=== PATIENT | male | born 1995 | race Caucasian/White ===

== ENCOUNTER → 2016-08-16 | Outpatient (CLI) | payer OTHER ==
[~2016-08-16] MED LIST: ABL/5 PO; CEPH500C PO; CETI10TA84 PO; ERYOPO OPB; MIRT1TAB27 PO; MIRT30TA PO; MIRT45TA3 PO; PANT40TA PO; PROP10TA54 PO; QUET1TAB30 PO; QUET1TAB34 PO; SULF800T23 PO
--- NOTE | 2016-08-16 10:19 | DIAGNOSTIC IMAGING REPORT ---
MRI OF THE BRAIN WITHOUT CONTRAST CLINICAL HISTORY: Visual hallucinations. COMPARISON STUDY: None. TECHNIQUE: Utilizing a 1.5 Vania magnet and dedicated coil, multiplanar, multiecho imaging of the brain was performed without IV contrast. FINDINGS: There are no areas of restricted diffusion. No acute intracranial hemorrhage, midline shift or mass effect is present. Brain volume is normal. Ventricular system is normal. The basilar cisterns are patent. There are no extra-axial collections. Flow-voids for the major intracranial vessels are present. Calvarial signal is maintained. No intracranial masses are identified on this unenhanced exam. No areas of parenchymal signal abnormality are present. An 8 mm T1 hyperintense focus along the superior wall of the sphenoid sinus is of doubtful significance. There is mild mucosal thickening of the sinuses. IMPRESSION: 1. Unremarkable unenhanced MRI of the brain. 2. Mild mucosal thickening of the sinuses. Electronically signed by: Mark Macario M.D. 08/16/2016 10:15 AM Dictated Date/Time: 08/16/2016 10:08 AM
== END | disposition home or self-care (01) ==
LOC: C.MRI 09:28
PROVIDERS: ATTEND Psychiatry & Neurology Neurology
DX: R44.1 Visual hallucinations (principal)

== ENCOUNTER → 2016-08-18 | Outpatient (CLI) | payer OTHER ==
--- NOTE | 2016-08-18 14:46 | MOTOR CONDUCTION ---
CLINICAL DIAGNOSIS: Periodic visual hallucinations now improving on medications. EEG DIAGNOSIS: Essentially normal during wakefulness. DESCRIPTION OF TRACING: This EEG was done in the laboratory and was of good technical quality. A simultaneous video analysis of patient movement and behavior was obtained. Photic stimulation was performed. Hyperventilation was not. Drowsiness and light sleep are not clearly recorded. Under these conditions, there is evidence for normal background rhythm in the alpha range of up to 10 Hz of maximum frequency and 30 microvolts of maximum amplitude. This is maximum posterior head regions and bilaterally symmetrical. Polymorphic mid frequency theta activity is seen over all head regions without clear focal regional predominance. Anterior head region maximum bilaterally symmetrical low voltage fast activity in the beta range is present. Photic stimulation provoked some modest driving response without any photoparoxysmal or photomyogenic component. At no time during the waking tracing is there evidence for potentially epileptogenic activity in the form of polyspike or spike wave bursts, focal sharp waves or focal spikes. INTERPRETATION: This EEG is essentially normal during wakefulness without evidence for focal or generalized encephalopathy and without evidence for potentially epileptogenic activity. MTDD
== END | disposition home or self-care (01) ==
LOC: C.NEUR 09:30
PROVIDERS: ATTEND Psychiatry & Neurology Neurology
DX: R44.1 Visual hallucinations (principal)

== ENCOUNTER 2016-10-22 19:51 | Emergency (ER) | payer OTHER ==
[~2016-10-22] VITALS: Ht 180.3 cm; Wt 74.6 kg
[~2016-10-22 19:51] MED LIST changes: -ABL/5 PO; -CEPH500C PO; -ERYOPO OPB; -MIRT30TA PO; -MIRT45TA3 PO; -QUET1TAB30 PO; -QUET1TAB34 PO; -SULF800T23 PO
[2016-10-22 20:00] VITALS: TEMP 36.8; Ht 180.3 cm; Wt 74.6 kg
[2016-10-22] MEDS ORDERED: ONDANSETRON INJ 2 MG/ML 2 ML VIAL IV STA (21:28)
[2016-10-22] MEDS ORDERED: SODIUM CHLORIDE 0.9% 1000ML 1,000 ML IV ONE (21:30)
[2016-10-22 21:43] LABS: BASO % 0.3 %; BASO ABS # 0.03 K/uL (0-0.2); COMPLETE YES; EOS % 3.2 %; HEMATOCRIT 43.4 % (42-52); IG% 0.2 %; LYMPH % 10.1 %; LYMPH ABS # 0.89 K/uL (1.2-3.4); MEAN CELL VOLUME 87.7 fL (80-100); MEAN CORPUSCULAR HEMOGLOBIN 30.7 pg (25-34); MONO % 12.8 %; NEUT % 73.4 %; PLATELET COUNT 223 K/uL (130-400); RED BLOOD COUNT 4.95 M/uL (4.7-6.1); WHITE BLOOD COUNT 8.78 K/uL (4.8-10.8)
--- NOTE | 2016-10-22 21:59 | DIAGNOSTIC IMAGING REPORT ---
KUB CLINICAL HISTORY: abd cramping COMPARISON STUDY: No previous studies for comparison. FINDINGS: There is no pathologic bowel dilatation. There is a 3 mm calcification projected over the left kidney consistent with a calculus. IMPRESSION: 1. No pathologic bowel dilatation 2. Left-sided nephrolithiasis Electronically signed by: Unruly Dickinson M.D. 10/22/2016 9:58 PM Dictated Date/Time: 10/22/2016 9:57 PM
[2016-10-22 22:01] LABS: BUN/CREATININE RATIO 18.2 (10-20); CALCIUM 9.3 mg/dl (8.5-10.1); POTASSIUM 3.8 mmol/L (3.5-5.1)
[2016-10-22 22:04] LABS: ALB/GLOB RATIO 1.4 (0.9-2)
[2016-10-22] MEDS ORDERED: QUET1TAB30 PO (22:29)
[2016-10-22] MEDS ORDERED: MIRT30TA PO (22:29)
[2016-10-22] MEDS ORDERED: QUET1TAB34 PO (22:29)
[2016-10-22 22:32] VITALS: BP 128/78; PULSE 89; O2SAT 98
--- NOTE | 2016-10-23 15:48 | EMERGENCY ROOM VISIT NOTE ---
History First contact with patient: 21:16 Chief Complaint: ABDOMINAL PAIN Stated Complaint: ABDOMINAL PAIN Nursing Triage Summary: pt c/o really bad abd pain that started an hour ago History of Present Illness The patient is a 21 year old male who presents to the Emergency Room with complaints of abdominal pain that began about 1 hour prior to arrival. The patient states that he was eating his dinner when he had a slowly worsening abdominal discomfort. He felt bloated and gassy. The patient states the symptoms persisted, prompting his presentation to the department. The patient has not had fever or chills. He was slightly nauseated without vomiting. Prior to my arrival in the room the patient had a large bowel movement here in the ER. He reports this significantly improved his symptoms. His discomfort was initially a 7/10, however now it is a 1/10. The patient considers himself usually healthy. Review of Systems More than 10 systems were reviewed and otherwise negative with the exception of history of present illness. Past Medical/Surgical History Surgical Problems: (1) History of tonsillectomy Family History Patient reports no known family medical history. Social History Smoking Status: Current Some Day Smoker Alcohol Use: occasionally Drug Use: none Marital Status: single Occupation Status: [employer] student Current/Historical Medications Scheduled Mirtazapine (Remeron), 30 MG PO HS Quetiapine Fumarate (Seroquel), 50 MG PO QAM Quetiapine Fumarate (Seroquel), 150 MG PO HS Scheduled PRN Propranolol HCl (Propranolol HCl), 10 MG PO DAILY PRN for PERFORMANCE ANXIETY Allergies Coded Allergies: Ibuprofen (Unverified Allergy, Severe, MAKES PT BLEED MORE, 10/22/16) Physical Exam Vital Signs Date Time Temp Pulse Resp B/P Pulse Ox O2 Delivery O2 Flow Rate FiO2 10/22/16 22:32 89 16 128/78 98 10/22/16 21:53 86 16 139/82 98 Room Air 10/22/16 20:00 36.8 99 18 138/88 95 Room Air Pain Rating (0-10): 0 Physical Exam VITALS: Vitals are noted on the nurse's note and reviewed by myself. Vital signs stable. GENERAL: Well-developed, well-nourished, white male, who is in no acute distress and resting comfortably. Patient is cooperative with the examination. HEAD: Normocephalic atraumatic. NECK: Supple without nuchal rigidity. No lymphadenopathy. No thyromegaly. Cervical spine is nontender. HEART: Regular rate and rhythm without murmurs gallops or rubs. LUNGS: Clear to auscultation bilaterally without wheezes, rales or rhonchi. No retractions or accessory muscle use. ABDOMEN: Positive normal bowel sounds x 4. Soft, nontender, without masses or organomegaly. No guarding or rebound tenderness. MUSCULOSKELETAL: No muscle atrophy, erythema, or edema noted. Full range of motion without joint tenderness in all extremities. Medical Decision & Procedures ER Provider Diagnostic Interpretation: KUB CLINICAL HISTORY: abd cramping COMPARISON STUDY: No previous studies for comparison. FINDINGS: There is no pathologic bowel dilatation. There is a 3 mm calcification projected over the left kidney consistent with a calculus. IMPRESSION: 1. No pathologic bowel dilatation 2. Left-sided nephrolithiasis Laboratory Results 10/22/16 21:30 Red Blood Count 4.95, Mean Corpuscular Volume 87.7, Mean Corpuscular Hemoglobin 30.7, Mean Corpuscular Hemoglobin Concent 35.0, Mean Platelet Volume 9.0, Neutrophils (%) (Auto) 73.4, Lymphocytes (%) (Auto) 10.1, Monocytes (%) (Auto) 12.8, Eosinophils (%) (Auto) 3.2, Basophils (%) (Auto) 0.3, Neutrophils # (Auto ) 6.44, Lymphocytes # (Auto) 0.89, Monocytes # (Auto) 1.12, Eosinophils # (Auto ) 0.28, Basophils # (Auto) 0.03 10/22/16 21:30 Test 10/22/16 21:30 White Blood Count 8.78 K/uL (4.8-10.8) Red Blood Count 4.95 M/uL (4.7-6.1) Hemoglobin 15.2 g/dL (14.0-18.0) Hematocrit 43.4 % (42-52) Mean Corpuscular Volume 87.7 fL (80-100) Mean Corpuscular Hemoglobin 30.7 pg (25-34) Mean Corpuscular Hemoglobin Concent 35.0 g/dl (32-36) Platelet Count 223 K/uL (130-400) Mean Platelet Volume 9.0 fL (7.4-10.4) Neutrophils (%) (Auto) 73.4 % Lymphocytes (%) (Auto) 10.1 % Monocytes (%) (Auto) 12.8 % Eosinophils (%) (Auto) 3.2 % Basophils (%) (Auto) 0.3 % Neutrophils # (Auto) 6.44 K/uL (1.4-6.5) Lymphocytes # (Auto) 0.89 K/uL (1.2-3.4) Monocytes # (Auto) 1.12 K/uL (0.11-0.59) Eosinophils # (Auto) 0.28 K/uL (0-0.5) Basophils # (Auto) 0.03 K/uL (0-0.2) RDW Standard Deviation 37.4 fL (36.4-46.3) RDW Coefficient of Variation 11.8 % (11.5-14.5) Immature Granulocyte % (Auto) 0.2 % Immature Granulocyte # (Auto) 0.02 K/uL (0.00-0.02) Anion Gap 8.0 mmol/L (3-11) Est Creatinine Clear Calc Drug Dose 124.3 ml/min Estimated GFR () 125.0 Estimated GFR (Non- 107.9 BUN/Creatinine Ratio 18.2 (10-20) Calcium Level 9.3 mg/dl (8.5-10.1) Total Bilirubin 0.3 mg/dl (0.2-1) Aspartate Amino Transf (AST/SGOT) 24 U/L (15-37) Alanine Aminotransferase (ALT/SGPT) 27 U/L (12-78) Alkaline Phosphatase 76 U/L (45-117) Total Protein 8.0 gm/dl (6.4-8.2) Albumin 4.6 gm/dl (3.4-5.0) Globulin 3.4 gm/dl (2.5-4.0) Albumin/Globulin Ratio 1.4 (0.9-2) Lipase 96 U/L (73-393) Medications Administered Medications (Trade) Dose Ordered Sig/Joe Route Start Time Stop Time Status Last Admin Dose Admin Sodium Chloride (Nss 1000ml) 1,000 ml @ 999 mls/hr Q1H1M ONCE IV 10/22/16 21:30 10/22/16 22:30 DC 10/22/16 21:52 999 MLS/HR ED Course Physical exam and history were performed. Nursing notes and EMR were reviewed. Patient appears to have crampy abdominal pain after eating. Prior to my evaluation of the patient he did have a large bowel movement, and now states that he feels much better. The patient exam is benign and he certainly does not present like an acute surgical abdomen. I did establish an IV and draw a basic labs. The patient was hydrated with normal saline. I offered him Zofran for his nausea, but he declined this. Additionally offered him pain medicine, but he declined this also. The patient blood work is as above and was reviewed. He does not have a significantly elevated white blood cell count, gross anemia, bandemia, or significant electrolyte imbalance. Lipase and transaminases are nondiagnostic. Plain films do not show evidence of obstruction or other significant findings. On reevaluation the patient did not have any worsening of his symptoms. It is likely that his discomfort was from eating, and then was relieved with using the bathroom. At this point I do not suspect an acute surgical abdomen as his belly remains nontender and soft. Recommended the patient follow with [facility] in the next few days for further evaluation. He was otherwise invited back to the ER with any new, worsening, or concerning symptoms or The chart was completed utilizing [employer] Speech Voice Recognition Software. Grammatical errors, random word insertions, pronoun errors, and incomplete sentences are an occasional consequence of this system due to software limitations, ambient noise, and hardware issues. Any formal questions or concerns about the content, text, or information contained within the body of this dictation should be directly addressed to the provider for clarification. . Medical Decision Differential diagnosis: Etiologies such as appendicitis, diverticulitis, PUD, biliary pathology, UTI, pancreatitis, obstruction, mesenteric ischemia, aortic pathology, infections, inflammatory bowel disease, renal colic, as well as others were entertained. Impression Primary Impression: Abdominal pain Departure Information Dispostion Home / Self-Care Condition GOOD Forms HOME CARE DOCUMENTATION FORM, IMPORTANT VISIT INFORMATION Patient Instructions My [facility] Additional Instructions You were seen and evaluated today on an emergency basis only. This is not a substitute for, or an effort to provide, complete comprehensive medical care. It is not possible to recognize and treat all injuries or illnesses in a single emergency department visit. For this reason it is recommended that you followup with your primary care physician with any ongoing or persistent symptoms. Drink plenty of fluids and remain well hydrated. You are welcome to return to the emergency department anytime with new, worsening, or concerning symptoms.
== END 2016-10-22 22:34 | disposition home or self-care (01) ==
LOC: C.EDB 19:52 → C.EDA 22:34
DX: R10.9 Unspecified abdominal pain (principal); F17.210 Nicotine dependence, cigarettes, uncomplicated; Z79.899 Other long term (current) drug therapy

== ENCOUNTER 2016-10-31 20:02 | Emergency (ER) | payer OTHER ==
[~2016-10-31] VITALS: Ht 180.3 cm; Wt 73.3 kg
[~2016-10-31 20:02] MED LIST changes: -CETI10TA84 PO; -MIRT1TAB27 PO; +MIRT30TA PO; -PANT40TA PO; +QUET1TAB30 PO; +QUET1TAB34 PO
[2016-10-31 20:12] VITALS: TEMP 37.3; Ht 180.3 cm; Wt 73.3 kg
--- NOTE | 2016-10-31 20:55 | EMERGENCY ROOM VISIT NOTE ---
History Report prepared by Micaela: Trixie Dobbins Under the Supervision of: Dr. Arron Duron M.D. First contact with patient: 20:27 Chief Complaint: BACK PAIN Stated Complaint: BACK/CHEST PAIN History of Present Illness The patient is a 21 year old male who presents to the Emergency Room with complaints of intermittent chest pain for the past 3 days. He states that his pain began suddenly and was a sharp pain that was in his back and his chest. He ignored it but states that his symptoms have persisted. His pain is worsened with movement of his upper body, especially bending forward. He reports occasional burning pain in his chest. Taking a deep breath does not affect his pain. The patient rates his current pain as a 1/10 in severity. He denies fever , cough, vomiting, diarrhea, abdominal pain, pain or swelling in his legs, calf pain, recent trauma, and any recent prolonged travel. He had a psychotic break in May and states that his doctors suspect schizophrenia. He is currently taking medication and managing those symptoms well. He denies suicidal ideation or trying to hurt himself. Source of History: patient Onset: 3 days ago Position: chest Symptom Intensity: 1/10 Quality: burning, sharp Timing: intermittent Modifying Factors (Worsening): movement (of the upper body) Associated Symptoms: + back pain, No abdominal pain, No cough, No diarrhea, No fevers, No vomiting Review of Systems See HPI for pertinent positives & negatives. A total of 10 systems reviewed and were otherwise negative. Past Medical & Surgical Medical Problems: (1) Asthma Surgical Problems: (1) History of tonsillectomy Old medical records were reviewed. Nurse's notes were reviewed and I agree with. Family History Patient reports no known family medical history. Social History Smoking Status: Current Some Day Smoker Alcohol Use: occasionally Drug Use: none Marital Status: single Occupation Status: [employer] student Current/Historical Medications Scheduled Mirtazapine (Remeron), 30 MG PO HS Quetiapine Fumarate (Seroquel), 50 MG PO QAM Quetiapine Fumarate (Seroquel), 150 MG PO HS Scheduled PRN Propranolol HCl (Propranolol HCl), 10 MG PO DAILY PRN for PERFORMANCE ANXIETY Allergies Coded Allergies: Ibuprofen (Unverified Allergy, Severe, MAKES PT BLEED MORE, 10/31/16) Physical Exam Vital Signs Date Time Temp Pulse Resp B/P Pulse Ox O2 Delivery O2 Flow Rate FiO2 10/31/16 21:03 94 10/31/16 20:12 37.3 121 20 134/73 98 Room Air Physical Exam General: Well developed well nourished non-ill appearing young male in no acute distress, but slightly anxious, breathing comfortably on room air. Normal speech HEENT: Normal cephalic atraumatic. Pupils are equal round and reactive to light. Extraocular movements are intact. Oropharynx is pink with moist mucous membranes. No swelling of the mouth lips or tongue. Neck: Supple with a midline trachea. No meningeal signs or stiffness, no JVD or bruits. No Stridor. Chest: Clear to auscultation bilaterally. No wheezes or rhonchi. No increased work of breathing. Heart: Slightly tachycardic rate and regular rhythm. Abdomen: Soft nontender, nondistended without rebound guarding or rigidity. Extremities: No cyanosis clubbing or edema. No calf tenderness or assymetry Spine/Back. Non tender to palpation. No CVA tenderness Skin: Good turgor without rashes. Neurologic exam: Cranial nerves two through 12 are intact. Motor and sensation are intact and symmetrical throughout. Medical Decision & Procedures ER Provider Diagnostic Interpretation: Radiology results as stated below per my review and radiologist interpretation: CHEST ONE VIEW PORTABLE HISTORY: Atypical CHEST PAIN COMPARISON: Chest 05/11/2016. FINDINGS: The lungs are clear. Cardiac silhouette is normal in size. No pleural effusions. No pneumothorax. IMPRESSION: No acute process. Electronically signed by: Iker Richards M.D. 10/31/2016 9:35 PM Dictated Date/Time: 10/31/2016 9:34 PM Laboratory Results 10/31/16 20:55 Red Blood Count 4.88, Mean Corpuscular Volume 89.1, Mean Corpuscular Hemoglobin 31.1, Mean Corpuscular Hemoglobin Concent 34.9, Mean Platelet Volume 9.3, Neutrophils (%) (Auto) 49.7, Lymphocytes (%) (Auto) 28.8, Monocytes (%) (Auto) 14.0, Eosinophils (%) (Auto) 6.9, Basophils (%) (Auto) 0.4, Neutrophils # (Auto ) 2.45, Lymphocytes # (Auto) 1.42, Monocytes # (Auto) 0.69, Eosinophils # (Auto ) 0.34, Basophils # (Auto) 0.02 10/31/16 20:55 Test 10/31/16 20:55 White Blood Count 4.93 K/uL (4.8-10.8) Red Blood Count 4.88 M/uL (4.7-6.1) Hemoglobin 15.2 g/dL (14.0-18.0) Hematocrit 43.5 % (42-52) Mean Corpuscular Volume 89.1 fL (80-100) Mean Corpuscular Hemoglobin 31.1 pg (25-34) Mean Corpuscular Hemoglobin Concent 34.9 g/dl (32-36) Platelet Count 199 K/uL (130-400) Mean Platelet Volume 9.3 fL (7.4-10.4) Neutrophils (%) (Auto) 49.7 % Lymphocytes (%) (Auto) 28.8 % Monocytes (%) (Auto) 14.0 % Eosinophils (%) (Auto) 6.9 % Basophils (%) (Auto) 0.4 % Neutrophils # (Auto) 2.45 K/uL (1.4-6.5) Lymphocytes # (Auto) 1.42 K/uL (1.2-3.4) Monocytes # (Auto) 0.69 K/uL (0.11-0.59) Eosinophils # (Auto) 0.34 K/uL (0-0.5) Basophils # (Auto) 0.02 K/uL (0-0.2) RDW Standard Deviation 38.8 fL (36.4-46.3) RDW Coefficient of Variation 12.0 % (11.5-14.5) Immature Granulocyte % (Auto) 0.2 % Immature Granulocyte # (Auto) 0.01 K/uL (0.00-0.02) Anion Gap 7.0 mmol/L (3-11) Est Creatinine Clear Calc Drug Dose 124.7 ml/min Estimated GFR () 128.1 Estimated GFR (Non- 110.5 BUN/Creatinine Ratio 14.0 (10-20) Calcium Level 9.1 mg/dl (8.5-10.1) Total Bilirubin 0.3 mg/dl (0.2-1) Direct Bilirubin < 0.1 mg/dl (0-0.2) Aspartate Amino Transf (AST/SGOT) 17 U/L (15-37) Alanine Aminotransferase (ALT/SGPT) 21 U/L (12-78) Alkaline Phosphatase 78 U/L (45-117) Total Creatine Kinase 218 U/L (39-308) Creatine Kinase MB 0.9 ng/ml (0.5-3.6) Creatine Kinase MB Ratio 0.4 (0-3.0) Total Protein 7.8 gm/dl (6.4-8.2) Albumin 4.5 gm/dl (3.4-5.0) Lipase 103 U/L (73-393) Thyroid Stimulating Hormone (TSH) 1.130 uIu/ml (0.300-4.500) Laboratory studies as stated above per my review. ECG Indication: chest pain Rate (beats per minute): 106 Rhythm: sinus tachycardia Findings: nonspecific-ST abn, no acute ischemic change, no ectopy Comparison ECG Date: no prior available ED Course 2026: Past medical records reviewed. The patient was evaluated in room B10, and a complete history and physical examination were performed. 2135: I reassessed the patient. He is resting comfortably. His troponin and D- dimer are normal. 2214: I reassessed the patient at this time. He is feeling better and resting comfortably. I discussed the results and treatment plan with the patient. I answered all pertaining questions that he had. He expressed understanding and verbalized agreement. The patient will be discharged home. Medical Decision Differential diagnoses includes arrhythmia, acute coronary syndrome, PE, thyroid disease, electrolyte or metabolic abnormality. This patient comes in as described above. He was placed in room B 10. He's been having chest pain for couple days. It hurts when he moves forward and along the sternum. He's had no trauma. He does seem mildly anxious as well. IV access established, EKG, chest x-ray and multiple blood tests were obtained including cardiac biomarkers and d-dimer. He does have a history of possible schizophrenia and says it that's been stable with medications he denies any suicidal or homicidal ideations. He was reassessed frequently. His EKG does not suggest acute coronary syndrome or arrhythmia. His troponin is within normal limits. He has nothing to suggest an acute cardiac event or significant arrhythmia. His d-dimer is normal and in a low pretest probability this makes PE highly unlikely. Chest x-ray does not show congestive heart failure, pneumonia, or pneumothorax. He has no significant electrolyte or metabolic abnormalities. He is feeling much better and would like to go home. He can use [id number] acetaminophen a maximum of 650 mg every 6 hours, take with food. I told him not to take with any other medications that contain acetaminophen/Tylenol and return to ER if: Increasing pain, worsening of symptoms, shortness of breath, fever or chills, any new problems concerns. He is happy with plan and discharged to home. Impression Primary Impression: Precordial chest pain Additional Impressions: Anxiety Costochondritis Scribe Attestation The scribe's documentation has been prepared under my direction and personally reviewed by me in its entirety. I confirm that the note above accurately reflects all work, treatment, procedures, and medical decision making performed by me. Departure Information Dispostion Home / Self-Care Referrals aMrques Yepez (PCP) Forms HOME CARE DOCUMENTATION FORM, IMPORTANT VISIT INFORMATION Patient Instructions My [facility] Additional Instructions Rest. Drink plenty of fluids. May use Tylenol/acetaminophen a maximum of 650 mg every 6 hours if needed. Do not take with any other medications that contain Tylenol/acetaminophen Return to the ER if: Increasing pain, worsening of symptoms, fever or chills, any new problems or concerns Follow-up with your doctor the [facility] this week for recheck if not better or return to the ER at any point if symptoms worsen Problem Qualifiers
[2016-10-31 21:06] LABS: BASO % 0.4 %; BASO ABS # 0.02 K/uL (0-0.2); COMPLETE YES; EOS % 6.9 %; HEMATOCRIT 43.5 % (42-52); IG% 0.2 %; LYMPH % 28.8 %; LYMPH ABS # 1.42 K/uL (1.2-3.4); MEAN CELL VOLUME 89.1 fL (80-100); MEAN CORPUSCULAR HEMOGLOBIN 31.1 pg (25-34); MEAN CORPUSCULAR HGB CONC 34.9 g/dl (32-36); MEAN PLATELET VOLUME 9.3 fL (7.4-10.4); NEUT % 49.7 %; PLATELET COUNT 199 K/uL (130-400); RED BLOOD COUNT 4.88 M/uL (4.7-6.1); WHITE BLOOD COUNT 4.93 K/uL (4.8-10.8)
--- NOTE | 2016-10-31 21:37 | DIAGNOSTIC IMAGING REPORT ---
CHEST ONE VIEW PORTABLE HISTORY: Atypical CHEST PAIN COMPARISON: Chest 05/11/2016. FINDINGS: The lungs are clear. Cardiac silhouette is normal in size. No pleural effusions. No pneumothorax. IMPRESSION: No acute process. Electronically signed by: Iker Richards M.D. 10/31/2016 9:35 PM Dictated Date/Time: 10/31/2016 9:34 PM
[2016-10-31 21:57] LABS: BLOOD UREA NITROGEN 14 mg/dl (7-18); CALCIUM 9.1 mg/dl (8.5-10.1); CARBON DIOXIDE 31 mmol/L (21-32); CHLORIDE 106 mmol/L (98-107); CREATININE 0.98 mg/dl (0.60-1.40); GLUCOSE 101 mg/dl (70-99); POTASSIUM 3.7 mmol/L (3.5-5.1); SODIUM 144 mmol/L (136-145)
[2016-10-31 22:03] LABS: ALKALINE PHOSPHATASE 78 U/L (45-117); ALT/SGPT 21 U/L (12-78); AST/SGOT 17 U/L (15-37); CKMB/CK RATIO 0.4 (0-3.0)
[2016-10-31 22:26] VITALS: BP 125/65; PULSE 80; O2SAT 98
[2016-11-01 09:47] LABS: POINT OF CARE TROPONIN I 0.01 ng/ml (0-0.045)
== END 2016-10-31 22:30 | disposition home or self-care (01) ==
LOC: C.EDB 20:03
DX: M94.0 Chondrocostal junction syndrome [Tietze] (principal); F41.9 Anxiety disorder, unspecified; J45.909 Unspecified asthma, uncomplicated; F17.210 Nicotine dependence, cigarettes, uncomplicated; Z79.899 Other long term (current) drug therapy

== ENCOUNTER 2017-03-27 19:46 | Emergency (ER) | payer OTHER ==
[~2017-03-27] VITALS: Ht 177.8 cm; Wt 72.9 kg
[2017-03-27 19:48] VITALS: TEMP 36.8; Ht 177.8 cm; Wt 72.9 kg
[2017-03-27] MEDS ORDERED: ABL/5 PO (20:00)
[2017-03-27] MEDS ORDERED: MIRT45TA3 PO (20:00)
[2017-03-27] MEDS ORDERED: SODIUM CHLORIDE 0.9% 1000ML 1,000 ML IV STA (20:22)
[2017-03-27] MEDS ORDERED: CEFTRIAXONE SOD INJ 1 GM ADDVIAL IV STA (20:22)
[2017-03-27 20:44] LABS: BASO % 0.5 %; BASO ABS # 0.03 K/uL (0-0.2); COMPLETE YES; EOS % 9.3 %; HEMATOCRIT 40.3 % (42-52); IG% 0.2 %; LYMPH % 28.5 %; LYMPH ABS # 1.84 K/uL (1.2-3.4); MEAN CELL VOLUME 89.8 fL (80-100); MEAN CORPUSCULAR HEMOGLOBIN 31.2 pg (25-34); MEAN CORPUSCULAR HGB CONC 34.7 g/dl (32-36); MEAN PLATELET VOLUME 9.2 fL (7.4-10.4); MONO % 17.6 %; NEUT % 43.9 %; PLATELET COUNT 173 K/uL (130-400); RED BLOOD COUNT 4.49 M/uL (4.7-6.1); WHITE BLOOD COUNT 6.46 K/uL (4.8-10.8)
[2017-03-27] MEDS ORDERED: SEPTRA DS HOME PACK 1 EA VIAL PO STA (20:47)
[2017-03-27] MEDS ORDERED: SULFAMETHOXAZOLE/TRIMETHOPRIM 400/80MG TAB PO STA (20:47)
[2017-03-27] MEDS ORDERED: CEPHALEXIN 500MG HOME PACK 1 EA BTL PO STA (20:47)
[2017-03-27 21:02] LABS: BUN/CREATININE RATIO 10.3 (10-20); CALCIUM 9.1 mg/dl (8.5-10.1); CREATININE 0.96 mg/dl (0.60-1.40); POTASSIUM 3.4 mmol/L (3.5-5.1)
[2017-03-27 21:05] LABS: ALB/GLOB RATIO 1.4 (0.9-2)
[2017-03-27] MEDS ORDERED: ERYTHROMYCIN OP OINT 5 MG/GM 3.5 GM TUBE OP STA (21:30)
[2017-03-27] MEDS ORDERED: ERYOPO OPB (21:33)
[2017-03-27] MEDS ORDERED: SULF800T23 PO (21:33)
[2017-03-27] MEDS ORDERED: CEPH500C PO (21:33)
--- NOTE | 2017-03-27 21:34 | EMERGENCY ROOM VISIT NOTE ---
History First contact with patient: 19:51 Chief Complaint: BITE Stated Complaint: BUG BITE History of Present Illness The patient is a 22 year old male who presents to the Emergency Room via private vehicle with complaints of "bug bite". The patient states that he woke up yesterday morning, and noticed a tiny red dot on the left inner thigh. He states that it was very itchy, and now it has enlarged and is persistently itchy , but denies any pain. His tetanus is up-to-date. He also notes that he has had bilateral eye irritation for the past few days. He also notes he is switching between Abilify and Seroquel. He is concerned he may have agranulocytosis. He denies any fevers, chills, nausea, vomiting, numbness or tingling. Review of Systems A complete 6-point Review of Systems was discussed with the patient, with pertinent positives and negatives listed in the History of Present Illness. All remaining Review of Systems questions can be considered negative unless otherwise specified. Past Medical/Surgical History Medical Problems: (1) Asthma Surgical Problems: (1) History of tonsillectomy Family History Patient reports no known family medical history. No pertinent. Social History Smoking Status: Current Some Day Smoker Alcohol Use: occasionally Drug Use: none Marital Status: single Occupation Status: [employer] Current/Historical Medications Scheduled Aripiprazole (Abilify), 5 MG PO DAILY Cephalexin Monohydrate (Keflex), 500 MG PO QID Erythromycin Opth (Erythromycin Opth), 1 CM OPB QID Mirtazapine (Mirtazapine), 45 MG PO HS Quetiapine Fumarate (Seroquel), 75 MG PO BID Sulfa/Trimethoprim (Bactrim Ds 800MG/160MG), 1 TAB PO BID Scheduled PRN Propranolol HCl (Propranolol HCl), 10 MG PO DAILY PRN for PERFORMANCE ANXIETY Physical Exam Vital Signs Date Time Temp Pulse Resp B/P (MAP) Pulse Ox O2 Delivery O2 Flow Rate FiO2 03/27/17 21:44 91 16 144/72 97 Room Air 03/27/17 19:48 36.8 115 16 130/81 98 Room Air Physical Exam VITAL SIGNS - Vital signs and nursing notes were reviewed. Afebrile. Tachycardic. Normotensive. GENERAL -22-year-old male appearing his stated age who is in no acute distress. Communicates well with provider and answers questions appropriately. SKIN - there is a 10 cm in diameter erythematous, and slightly indurated region on the left inner thigh. No fluctuance or palpable abscess. No drainage. Central dark induration. No evidence of tick. No evidence of necrotic tissue. HEAD - NC/AT. EYES - PERRL with EOMI bilaterally. Sclera anicteric. There is mild conjunctival injection noted bilaterally, with some scant clear discharge. EARS - No deformities of external structures noted on gross examination bilaterally. LUNGS - Chest wall symmetric without accessory muscle use, intercostals retractions, or central cyanosis. Normal vesicular breath sounds CTA B/L. No wheezes, rales, or rhonchi appreciated. CARDIAC - RRR with S1/S2. No murmur, rubs, or gallops appreciated. EXTREMITIES - No clubbing or peripheral cyanosis. No pretibial edema present. Neurovascularly intact in the left lower extremity. +5/5 strength noted in UE/ LE bilaterally. No evidence of meningitis or encephalitis on exam. Medical Decision & Procedures Laboratory Results 03/27/17 20:36 Red Blood Count 4.49, Mean Corpuscular Volume 89.8, Mean Corpuscular Hemoglobin 31.2, Mean Corpuscular Hemoglobin Concent 34.7, Mean Platelet Volume 9.2, Neutrophils (%) (Auto) 43.9, Lymphocytes (%) (Auto) 28.5, Monocytes (%) (Auto) 17.6, Eosinophils (%) (Auto) 9.3, Basophils (%) (Auto) 0.5, Neutrophils # (Auto ) 2.84, Lymphocytes # (Auto) 1.84, Monocytes # (Auto) 1.14, Eosinophils # (Auto ) 0.60, Basophils # (Auto) 0.03 03/27/17 20:36 Test 03/27/17 20:36 White Blood Count 6.46 K/uL (4.8-10.8) Red Blood Count 4.49 M/uL (4.7-6.1) Hemoglobin 14.0 g/dL (14.0-18.0) Hematocrit 40.3 % (42-52) Mean Corpuscular Volume 89.8 fL (80-100) Mean Corpuscular Hemoglobin 31.2 pg (25-34) Mean Corpuscular Hemoglobin Concent 34.7 g/dl (32-36) Platelet Count 173 K/uL (130-400) Mean Platelet Volume 9.2 fL (7.4-10.4) Neutrophils (%) (Auto) 43.9 % Lymphocytes (%) (Auto) 28.5 % Monocytes (%) (Auto) 17.6 % Eosinophils (%) (Auto) 9.3 % Basophils (%) (Auto) 0.5 % Neutrophils # (Auto) 2.84 K/uL (1.4-6.5) Lymphocytes # (Auto) 1.84 K/uL (1.2-3.4) Monocytes # (Auto) 1.14 K/uL (0.11-0.59) Eosinophils # (Auto) 0.60 K/uL (0-0.5) Basophils # (Auto) 0.03 K/uL (0-0.2) RDW Standard Deviation 39.2 fL (36.4-46.3) RDW Coefficient of Variation 12.0 % (11.5-14.5) Immature Granulocyte % (Auto) 0.2 % Immature Granulocyte # (Auto) 0.01 K/uL (0.00-0.02) Anion Gap 5.0 mmol/L (3-11) Est Creatinine Clear Calc Drug Dose 125.5 ml/min Estimated GFR () 130.4 Estimated GFR (Non- 112.5 BUN/Creatinine Ratio 10.3 (10-20) Calcium Level 9.1 mg/dl (8.5-10.1) Total Bilirubin 0.5 mg/dl (0.2-1) Aspartate Amino Transf (AST/SGOT) 26 U/L (15-37) Alanine Aminotransferase (ALT/SGPT) 21 U/L (12-78) Alkaline Phosphatase 73 U/L (45-117) Total Protein 7.5 gm/dl (6.4-8.2) Albumin 4.4 gm/dl (3.4-5.0) Globulin 3.1 gm/dl (2.5-4.0) Albumin/Globulin Ratio 1.4 (0.9-2) Medications Administered Medications (Trade) Dose Ordered Sig/Joe Route Start Time Stop Time Status Last Admin Dose Admin Ceftriaxone Sodium (Rocephin Inj) 1 gm NOW STAT IV 03/27/17 20:22 03/27/17 20:24 DC 03/27/17 20:40 1 GM Sodium Chloride 1,000 ml @ 999 mls/hr Q1H1M STAT IV 03/27/17 20:22 03/27/17 21:22 DC 03/27/17 20:41 999 MLS/HR Trimethoprim/ Sulfamethoxazole (Septra 400/80MG Tab) 1 tab NOW STAT PO 03/27/17 20:47 03/27/17 20:48 DC 03/27/17 22:02 1 TAB Trimethoprim/ Sulfamethoxazole (Sulfameth/ Trimeth Ds 800/ 160MG Home Pack) 1 homepack UD STAT PO 03/27/17 20:47 03/27/17 20:48 DC 03/27/17 22:02 1 HOMEPACK Cephalexin Monohydrate (Keflex 500MG Home Pack) 1 homepack NOW STAT PO 03/27/17 20:47 03/27/17 20:48 DC 03/27/17 22:02 1 HOMEPACK Erythromycin (Erythromycin Oph Oint) 1 appln NOW STAT OP 03/27/17 21:30 03/27/17 21:31 DC 03/27/17 22:02 1 APPLN Medical Decision Patient was seen and evaluated as above. He presents to us today with left lower extremity cellulitis. The area was outlined with a felt tip pen. The case was discussed with the attending physician, who also personally evaluated the patient. The patient requests that we check for a granulocytosis. IV access was initiated, 1 g Rocephin was given for cellulitis, and CBC and CMP were obtained. CBC reveals no concern of leukocytosis or anemia. Metabolic panel reveals potassium low at 3.4. No evidence of kidney or liver failure. No evidence of a granulocytosis identified on blood work. He tolerated the 1 g Rocephin well. He was also hydrated with 1 L of normal saline. He was given Bactrim here. Home packs were given for Keflex and Bactrim. Remainder was sent to the pharmacy. He will also be given erythromycin ointment in the event that he may be experiencing bilateral bacterial conjunctivitis, however examination favors allergic. He is to follow-up with his family doctor regarding today's visit. He is to return with worsening. He is to have the wound reevaluated, and return with worsening. He was educated upon worrisome symptoms which to return, had respiratory distress, and was discharged home in good condition. He is felt stable for outpatient management. In evaluation treatment this patient following differential diagnoses were entertained: Cellulitis, sepsis, SIRS, agranulocytosis, meningitis, encephalitis , among others. Impression Primary Impression: Cellulitis Additional Impression: Conjunctivitis Departure Information Dispostion Home / Self-Care Condition GOOD Prescriptions Erythromycin Opth (ERYTHROMYCIN OPTH) 12 Appln/3.5 Gm Oint 1 CM OPB QID for 7 Days, #1 TUBE Prov: Mehul Limon PA-C 03/27/17 Sulfa/Trimethoprim (Bactrim Ds 800MG/160MG) Tab 1 TAB PO BID for 7 Days, #14 TAB Prov: Mehul Limon PA-C 03/27/17 Cephalexin Monohydrate (Keflex) 500 Mg Cap 500 MG PO QID for 7 Days, #28 CAP Prov: Mehul Limon PA-C 03/27/17 Referrals Marques Yepez (PCP) Patient Instructions [facility] Additional Instructions You were seen in the emergency Department for a skin infection of your leg. You have been prescribed Keflex and Bactrim. Please take these as prescribed. You have been prescribed erythromycin ointment to be used in the eye 4 times daily for 7 days. This is to help with the eye irritation. Please follow-up if the redness extends beyond the lines by returning here. Please follow-up with [facility] as we discussed. Please return to the emergency department with any new/concerning symptoms. Problem Qualifiers
[2017-03-27 21:44] VITALS: BP 144/72; PULSE 91; O2SAT 97
== END 2017-03-27 22:05 | disposition home or self-care (01) ==
LOC: C.EDB 19:47 → C.EDD 22:05
DX: L03.116 Cellulitis of left lower limb (principal); H10.9 Unspecified conjunctivitis; J45.909 Unspecified asthma, uncomplicated; F17.200 Nicotine dependence, unspecified, uncomplicated; Z90.89 Acquired absence of other organs